=== PATIENT | female | born 1990 | race Caucasian/White ===

== ENCOUNTER 2016-08-25 23:54 | Emergency (ER) | payer OTHER ==
[~2016-08-25] VITALS: Ht 165.1 cm; Wt 55.3 kg
--- NOTE | 2016-08-26 | NUR ---
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 PT IS ALERT X 3, C/O ALCOHOL INTOXICATION. PT ASSISTED TO ER BED, SKIN WARM AND DRY, RR EVEN AND UNLABORED. PT PLACED ON FAMILY INDEPENDENCE CASE MANAGER, AWAITING ORDERS FROM PROVIDER
[2016-08-26] MEDS ORDERED: ONDANSETRON 4 MG TAB.RAPDIS ONE (00:20)
[2016-08-26] MEDS ORDERED: ONDANSETRON 4 MG TAB.RAPDIS SL ONE (00:30)
--- NOTE | 2016-08-26 02:00 | NUR ---
PT RESTING IN ER BED, NAD NOTED, SKIN WARM AND DRY. 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
--- NOTE | 2016-08-26 04:02 | NUR ---
PT RESTING IN ER BED, NAD NOTED, PT IS ON SUPERVISOR VOLUNTEER SERVICES. WILL CONITINUE TO MONITOR
--- NOTE | 2016-08-26 05:09 | NUR ---
PT IS AWAKE, ALERT X 3, AMBULATED WITH STEADY GAIT. MD NOTIFIED
--- NOTE | 2016-08-26 05:34 | NUR ---
[facility] dispatch called. 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
--- NOTE | 2016-08-26 05:56 | NUR ---
[employer] AT BED SIDE
--- NOTE | 2016-08-26 06:08 | NUR ---
PER [employer], PT ADMITS TO DRINKING ALCOHOL. [employer] WILL BE TAKIN PT HOME. PT Patient discharged to home in stable condition. Written and verbal after care instructions given. Patient verbalizes understanding of instruction. PT ambulatory with a steady gait VITAL SIGNS WITHIN NORMAL LIMITS.
[2016-08-26 06:09] VITALS: BP 91/50
== END 2016-08-26 06:10 | disposition home or self-care (01) ==
LOC: ER 23:59
DX: F10.129 Alcohol abuse with intoxication, unspecified (principal); R41.82 Altered mental status, unspecified
CPT/HCPCS: A4606; Q0162; Z7610